=== PATIENT | male | born 1990 | race Two or more races ===

== ENCOUNTER 2024-10-06 01:59 | Emergency (ER) | payer OTHER, SELFPAY ==
[2024-10-06 02:07] VITALS: BP 133/84; PULSE 69; TEMP 36.7; O2SAT 97; BMI 25.8
--- NOTE | 2024-10-06 02:14 | ED.SKABFB1 ---
HPI - Skin/Abscess/Foreign Bdy General Chief complaint: Skin/Abscess/Foreign Body Stated complaint: NASAL/THROAT PAIN Time Seen by Provider: 10/06/24 02:12 Source: patient Mode of arrival: walk-in Limitations: no limitations History of Present Illness HPI narrative: believes he may have sniffed a FB into his left nostril sinus area at work. works at [employer] . no headache . No bleeding or FB sensation of his throat Related Data Allergies Allergy/AdvReac Type Severity Reaction Status Date / Time No Known Drug Allergies Allergy Verified 10/06/24 02:06 Review of Systems ROS Status of ROS 10 or more systems reviewed and unremarkable except as noted in history and below PFSH PFSH Social History Little interest or pleasure in doing things: not at all Feeling down, depressed, or hopeless: not at all Exam Constitutional Vital Signs, click to edit/add: Last Vital Signs Temp 98.1 F 10/06/24 02:07 Pulse 69 10/06/24 02:07 Resp 18 10/06/24 02:07 BP 133/84 10/06/24 02:07 Pulse Ox 97 10/06/24 02:07 O2 Del Method Room Air 10/06/24 02:07 Common normals: no apparent distress, average body habitus, oriented x3, no limitations, healthy appearing, alert and well nourished [facility] Common normals: normocephalic and head/scalp atraumatic Other: nasal passage inspected with otoscope and no obvious FB seen or any swelling Eye Common normals: EOMs intact bilaterally Respiratory Common normals: normal respiratory effort, no retractions, no use of accessory muscles and clear to auscultation bilaterally Cardio Common normals: regular rate, regular rhythm, S1 normal heart sound and S2 normal heart sound Extremity Common normals: normal to inspection and full ROM Neuro Common normals: oriented x3, CN's II-XII intact bilaterally, moves all extremities and no focal motor deficits Psych Appearance: grossly normal Course Vital Signs Vital signs: Vital Signs Temperature 98.1 F 10/06/24 02:07 Pulse Rate 69 10/06/24 02:07 Respiratory Rate 18 10/06/24 02:07 Blood Pressure 133/84 10/06/24 02:07 Pulse Oximetry 97 10/06/24 02:07 Oxygen Delivery Method Room Air 10/06/24 02:07 Temperature 98.1 F 10/06/24 02:07 Pulse Rate 69 10/06/24 02:07 Respiratory Rate 18 10/06/24 02:07 Blood Pressure 133/84 10/06/24 02:07 Pulse Oximetry 97 10/06/24 02:07 Oxygen Delivery Method Room Air 10/06/24 02:07 MDM - Skin/Abscess/Foreign Bdy MDM Narrative Medical decision making narrative: patient presents concerned his may have sniffed a FB into his left nostril while at work. Inspection of the nasal canal neg. CT with finding of mucosal thickening but no FB. Patient reassured and discharged home Discharge Plan Discharge Chief Complaint: Skin/Abscess/Foreign Body Clinical Impression: Sinus pressure Patient Disposition: Home, Self-Care Print Language: Pashto Instructions: Nasal Rinse (ED) Referrals: Physician,Non-Staff, MD [Primary Care Provider] - 1 week
--- NOTE | 2024-10-06 02:15 | PC.NURSE ---
Feels like he inhaled something while working.
== END 2024-10-06 03:06 | disposition home or self-care (01) ==
PROVIDERS: Emergency Provider Internal Medicine
DX: J34.89 Other specified disorders of nose and nasal sinuses (principal)
CPT/HCPCS: 70486; 99284